=== PATIENT | female | born 1985 | race Caucasian/White ===

== ENCOUNTER 2022-05-11 21:31 | Observation (INO) ==
[2022-05-11] MEDS ORDERED: ANCEF 1 GM in SODIUM CHLORIDE 50 ML IV ONE (22:07)
[2022-05-11] MEDS ORDERED: ANCEF ONE (22:17)
[2022-05-11] MEDS ORDERED: TORADOL IVP ONE (22:34)
[2022-05-11 22:35] LABS: BASOPHILS % (AUTO) 0.2 % (0.0-3.0); EOSINOPHILS # (AUTO) 0.3 K/ul (0.0-0.7); EOSINOPHILS % (AUTO) 3.3 % (0.0-7.0); HEMATOCRIT 38.1 % (37.0-47.0); HEMOGLOBIN 12.6 g/dl (12.0-16.0); IMMATURE GRANULOCYTE % (AUTO) 0.1 % (0.0-5.0); LYMPHOCYTES # (AUTO) 3.5 K/uL (0.60-3.4); LYMPHOCYTES % (AUTO) 38.6 (10.0-50.0); MEAN CORPUSCULAR HEMOGLOBIN 28.4 pg (27.0-31.0); MEAN CORPUSCULAR HGB CONC 33.1 (31.8-35.4); MONOCYTES # (AUTO) 0.5 K/uL (0.4-2.0); MONOCYTES % (AUTO) 5.6 (0-10); NEUTROPHILS # (AUTO) 4.7 K/ul (2.0-6.9); NEUTROPHILS % (AUTO) 52.2 % (42.2-75.2); PLATELET COUNT 367 10^3/uL (140-440); RDW COEFFICIENT OF VARIATION 13.5 % (11.6-14.8); RED BLOOD COUNT 4.43 10^6/ul (4.20-5.40)
[2022-05-11] MEDS ORDERED: MORPHINE 4 MG/ML SYRINGE IVP ONE (22:35)
--- NOTE | 2022-05-11 22:46 | ED.PDOC ---
General ED Provider: Dr. SANTOSH VILLALPANDO Chief Complaint: Cellulitis Stated Complaint: Patient is a 37 year old female who states that she has been moving from [place] to [place] and noticed yesterday what appeared to be a bite on the right triceps area. She states that is is painful and has enlarged quickly in size to 31 x 21 cm with swelling and pain. Time Seen by Provider: 05/11/22 21:58 Mode of Arrival: Walk-In Information Source: Patient Nursing and Triage Documentation Reviewed and Agree: Yes Does patient meet sepsis criteria?: No System Inflammatory Response Syndrome: Not Applicable Sepsis Protocol: For patient's 13 years and over: Temp is 96.8 and below OR 101 and greater Pulse >90 BPM Resp >20/minute Acutely Altered Mental Status Are patient's symptoms suggestive of a new infection, such as: -Pneumonia -Skin, Soft Tissue -Endocarditis -UTI -Bone, Joint Infection -Implantable Device -Acute Abdominal Infection -Wound Infection -Meningitis -Blood Stream Catheter Infection -Unknown Skin Complaint Exam Skin/Soft Tissue Complaint/Exam Onset/Duration: 2 days Symptoms Are: Still present Timing: Constant Initial Severity: Moderate Current Severity: Severe Location: right arm Character: Reports Redness, Swelling and Painful Aggravating: Reports Heat and Touch Alleviating: Reports None Associated Signs and Symptoms: Reports Tenderness and Red streaks Related History: Reports Insect bite/sting (possible ); Denies Similar episode or Recent trauma Related Surgical History: Reports None Recent Exposure to Others w/Similar Symptoms: Yes Skin Findings: Present Erythema Differential Diagnoses: Cellulitis and Infection Review of Systems Review Of Systems Constitutional: Reports No symptoms Eyes: Reports No symptoms Ears, Nose, Mouth, Throat: Reports No symptoms Cardiac: Reports No symptoms GI: Reports No symptoms : Reports No symptoms Musculoskeletal: Reports Muscle pain Skin: Reports Change in color and Rash Neurological: Reports Anxiety All Other Systems: Reviewed and Negative PFSH Female Reproductive History Menstrual Hx Hysterectomy: No Hx Tubal Ligation: Yes (2003 AND REVERSAL IN 2009) Physical Exam Physical Exam Appearance: Reports Obese Ill-appearing: Mild Pain Distress: Moderate Eyes: Reports MARTINE, EOMI and Conjunctiva clear ENT: Reports Nose normal Neck: Not Examined Respiratory: Reports Airway patent and Breath sounds clear Cardiovascular: Reports RRR and No rub GI/: Reports Not Examined Musculoskeletal: Reports Edema Skin: Reports Warm and Dry Neurological: Reports Motor intact, Alert and Oriented Psychiatric: Reports Anxious Critical Care Note Critical Care Note Total Critical Care Time (mins): 0 Course Course Hematology/Chemistry: 05/11/22 22:30 05/11/22 22:30 Orders, Labs, Meds: Lab Review 05/11/22 05/11/22 05/11/22 22:30 22:30 22:30 WBC 9.00 RBC 4.43 Hgb 12.6 Hct 38.1 MCV 86.0 MCH 28.4 MCHC 33.1 RDW Coeff of Cruzito 13.5 Plt Count 367 Immature Gran % (Auto) 0.1 Neut % (Auto) 52.2 Lymph % (Auto) 38.6 Pitkin % (Auto) 5.6 Eos % (Auto) 3.3 Baso % (Auto) 0.2 Neut # (Auto) 4.7 Lymph # (Auto) 3.5 H Pitkin # (Auto) 0.5 Eos # (Auto) 0.3 Baso # (Auto) 0.0 Immature Gran # (Auto) 0.0 Sodium 140.8 Potassium 3.85 Chloride 105.0 Carbon Dioxide 23.9 Anion Gap 15.75 BUN 11.9 Creatinine 0.87 Estimated GFR (MDRD) 72.00 BUN/Creatinine Ratio 13.67 Glucose 103.5 Lactic Acid Calcium 9.15 Total Bilirubin < 0.10 L AST 25.0 ALT 21.2 Alkaline Phosphatase 49.2 Total Protein 7.53 Albumin 4.63 Globulin 2.90 Albumin/Globulin Ratio 1.59 Procalcitonin < 0.05 05/11/22 22:30 WBC RBC Hgb Hct MCV MCH MCHC RDW Coeff of Cruzito Plt Count Immature Gran % (Auto) Neut % (Auto) Lymph % (Auto) Pitkin % (Auto) Eos % (Auto) Baso % (Auto) Neut # (Auto) Lymph # (Auto) Pitkin # (Auto) Eos # (Auto) Baso # (Auto) Immature Gran # (Auto) Sodium Potassium Chloride Carbon Dioxide Anion Gap BUN Creatinine Estimated GFR (MDRD) BUN/Creatinine Ratio Glucose Lactic Acid 1.13 Calcium Total Bilirubin AST ALT Alkaline Phosphatase Total Protein Albumin Globulin Albumin/Globulin Ratio Procalcitonin Orders Category Date Time Status PLACE [facility] 05/12/22 00:05 Active BED) ACTIVITY .Up ad Krista CARE 05/12/22 00:06 Active INTAKE & OUTPUT Q8HR CARE 05/12/22 00:05 Active VITAL SIGNS Q8HR CARE 05/12/22 00:06 Active REGULAR DIET DIETARY 05/12/22 Breakfast Ordered ED APPLY O2 .ONCE EMERGENCY 05/11/22 22:07 Active ED ADOPTION SERVICES MANAGER APPLIED .ONCE EMERGENCY 05/11/22 22:07 Active ED IV/MEDIPORT/POWERPORT .ONCE EMERGENCY 05/11/22 22:07 Active BASIC METABOLIC PANEL DAILY@0600 LAB 05/12/22 06:00 Ordered BASIC METABOLIC PANEL DAILY@0600 LAB 05/13/22 06:00 Ordered BLOOD CULTURE (ED ONLY) Stat LAB 05/11/22 22:40 Received CBC W/ AUTO DIFF DAILY@0600 LAB 05/12/22 06:00 Ordered CBC W/ AUTO DIFF DAILY@0600 LAB 05/13/22 06:00 Ordered CBC W/ AUTO DIFF Stat LAB 05/11/22 22:30 Completed COMPREHENSIVE METABOLIC PANEL Stat LAB 05/11/22 22:30 Completed LACTIC ACID Stat LAB 05/11/22 22:30 Completed PROCALCITONIN Stat LAB 05/11/22 22:30 Completed SARS COV-2 RNA RAPID OLIVIA Stat LAB 05/11/22 Received 0.9 % Sodium Chloride [Saline Flush] MEDS 05/11/22 22:07 Active 1 syr IVF PRN PRN Cefazolin Sodium [Ancef] MEDS 05/11/22 22:17 Discontinued 1 gm .ROUTE .STK-MED ONE Cefazolin Sodium [Ancef] 1 gm MEDS 05/11/22 22:07 Discontinued 0.9 % Sodium Chloride [Sodium Chloride] 50 ml IV ONCE Cefazolin Sodium/Dextrose,Iso [Ancef 1 gm/50 ml D5w] MEDS 05/12/22 05:00 Ordered 1 gm in 50 ml IV Q8HR Enoxaparin Sodium [Lovenox] MEDS 05/12/22 09:00 Ordered 40 mg SUBCUT DAILY Hydrocodone Bit/Acetaminophen [Freeman 5-325] MEDS 05/12/22 00:05 Ordered 1 tab PO Q6H PRN Ketorolac Tromethamine [Toradol] MEDS 05/11/22 22:34 Discontinued 15 mg IVP ONCE ONE Morphine Sulfate [Morphine 4 mg/ml Syringe] MEDS 05/11/22 22:35 Discontinued 4 mg IVP ONCE ONE Morphine Sulfate [Morphine 4 mg/ml Syringe] MEDS 05/12/22 00:11 Ordered 4 mg IVP Q6H PRN Ondansetron HCl/Pf [Zofran 4 mg/2 ml] MEDS 05/12/22 00:05 Ordered 4 mg IVP Q6H PRN Sodium Chloride 0.9% [Sodium Chloride] 1,000 ml MEDS 05/12/22 00:30 Ordered IV 75 mls/hr RESUSCITATION STATUS Routine OTHERS 05/12/22 00:05 Ordered Medications Generic Name Dose Route Start Last Admin Trade Name Latonia PRN Reason Stop Dose Admin Hydrocodone Bitart/Acetaminophen 1 tab 05/12/22 00:05 Hydrocodone Bit/Acetaminophen 5/325 Mg Tablet PO Q6H PRN MODERATE PAIN Enoxaparin Sodium 40 mg 05/12/22 09:00 Enoxaparin Sodium 40 Mg/0.4 Ml Syr SUBCUT DAILY MADALYN Sodium Chloride 1,000 mls @ 75 mls/hr 05/12/22 00:30 Sodium Chloride IV .[id number] MADALYN Cefazolin Sodium/Dextrose 1 gm in 50 mls @ 75 mls/hr 05/12/22 05:00 Ancef 1 Gm/50 Ml D5w IV 05/15/22 04:59 Q8HR MADALYN Morphine Sulfate 4 mg 05/12/22 00:11 Morphine Sulfate 4 Mg/Ml Syringe IVP Q6H PRN severe pain Ondansetron HCl 4 mg 05/12/22 00:05 Ondansetron Hcl/Pf 4 Mg/2 Ml Sdv IVP Q6H PRN Nausea / Vomiting Sodium Chloride 1 syr 05/11/22 22:07 0.9% Sodium Chloride 10 Ml Disp.Syrin IVF PRN PRN To flush IV Discontinued Medications Generic Name Dose Route Start Last Admin Trade Name Latonia PRN Reason Stop Dose Admin Cefazolin Sodium 1 gm/ Sodium 50 mls @ 75 mls/hr 05/11/22 22:07 05/11/22 22:18 Chloride IV 05/11/22 22:46 75 mls/hr ONCE ONE Administration Ketorolac Tromethamine 15 mg 05/11/22 22:34 05/11/22 22:54 Ketorolac Tromethamine 15 Mg/Ml Vial IVP 05/11/22 22:35 15 mg ONCE ONE Administration Morphine Sulfate 4 mg 05/11/22 22:35 05/11/22 22:54 Morphine Sulfate 4 Mg/Ml Syringe IVP 05/11/22 22:36 4 mg ONCE ONE Administration Vital Signs: Temp Pulse Resp BP Pulse Ox 05/11/22 21:34 97.7 F 76 20 128/82 98 Discharge Plan Discharge Patient Disposition: PLACED OBSERVATION Discharge Problem: Cellulitis Did you review [place] HARVEST WORKER?: Not Applicable ED Provider: SANTOSH VILLALPANDO Condition: Fair Physician Progress Note: []
[2022-05-11 22:48] LABS: ALANINE AMINOTRANSFERASE 21.2 U/L (0-35); ALBUMIN 4.63 g/dL (3.5-5.0); ALKALINE PHOSPHATASE 49.2 U/L (38-126); BILIRUBIN,TOTAL < 0.10 mg/dL (0.2-1.3); BLOOD UREA NITROGEN 11.9 mg/dL (7-17); CALCIUM 9.15 mg/dL (8.4-10.2); CARBON DIOXIDE 23.9 mmol/L (22-30.0); CREATININE 0.87 mg/dL (0.60-1.30); GLUCOSE 103.5 mg/dL (74-106); POTASSIUM 3.85 mmol/L (3.5-5.1); SODIUM 140.8 mmol/L (134.5-145); TOTAL PROTEIN 7.53 g/dL (6.3-8.2)
[2022-05-12] MEDS ORDERED: ZOFRAN 4 MG/2 ML IVP PRN (00:05)
[2022-05-12] MEDS ORDERED: NORCO 5-325 PO PRN (00:05)
[2022-05-12] MEDS ORDERED: MORPHINE 4 MG/ML SYRINGE IVP PRN (00:11)
[2022-05-12 02:15] VITALS: BMI 36.1
[2022-05-12] MEDS: SODIUM CHLORIDE 1,000 ML IV SCH ×2 (03:30→16:08)
[2022-05-12 05:13] LABS: BASOPHILS % (AUTO) 0.2 % (0.0-3.0); EOSINOPHILS # (AUTO) 0.3 K/ul (0.0-0.7); EOSINOPHILS % (AUTO) 3.4 % (0.0-7.0); HEMATOCRIT 38.3 % (37.0-47.0); HEMOGLOBIN 12.2 g/dl (12.0-16.0); IMMATURE GRANULOCYTE % (AUTO) 0.1 % (0.0-5.0); LYMPHOCYTES # (AUTO) 3.4 K/uL (0.60-3.4); LYMPHOCYTES % (AUTO) 39.2 (10.0-50.0); MEAN CORPUSCULAR HEMOGLOBIN 28.2 pg (27.0-31.0); MEAN CORPUSCULAR HGB CONC 31.9 (31.8-35.4); MEAN CORPUSCULAR VOLUME 88.7 fl (81.0-99.0); MONOCYTES # (AUTO) 0.5 K/uL (0.4-2.0); MONOCYTES % (AUTO) 5.3 (0-10); NEUTROPHILS # (AUTO) 4.5 K/ul (2.0-6.9); NEUTROPHILS % (AUTO) 51.8 % (42.2-75.2); PLATELET COUNT 336 10^3/uL (140-440); RDW COEFFICIENT OF VARIATION 13.7 % (11.6-14.8); RED BLOOD COUNT 4.32 10^6/ul (4.20-5.40); WHITE BLOOD COUNT 8.63 K/ul (4.6-10.2)
[2022-05-12] MEDS: ANCEF 1 GM/50 ML D5W 1 GM/50 ML BAG IV SCH ×3 (05:15→20:23)
[2022-05-12 05:28] LABS: BLOOD UREA NITROGEN 11.8 mg/dL (7-17); CALCIUM 8.51 mg/dL (8.4-10.2); CARBON DIOXIDE 22.4 mmol/L (22-30.0); CHLORIDE 106.2 mmol/L (98-107); CREATININE 0.67 mg/dL (0.60-1.30); GLUCOSE 99.2 mg/dL (74-106); POTASSIUM 3.83 mmol/L (3.5-5.1); SODIUM 138.9 mmol/L (134.5-145)
[2022-05-12] MEDS: LOVENOX SUBCUT SCH (09:03)
[2022-05-12] MEDS: MOTRIN PO PRN (16:07)
--- NOTE | 2022-05-13 03:49 | PCM.PROG ---
Date Seen by Provider: 05/12/22 Time Seen by Provider: 12:30 Subjective: Continued right elbow and forearm pain and swelling Objective: Vitals: T=97.9 F, P=65, R=12, UM=507/59, SPO2=98 HEENT: []WNL Neck: []supple Lungs: []chest was clear CVS: []RRR Abdomen: []benign Extremities: []right dorso-medial elbow to forearm redness, swelling and mild tenderness. full ROM. Neurological: []non-focal Skin: []no acute abnormality. Lab/Tests/Diagnostic Imaging: [] (1) Cellulitis: Status: Acute Code(s): L03.90 - Cellulitis, unspecified SNOMED Code(s): 436222872 Plan: 1. Continue Tx regimen. 2. Ensure analgesia. 3. RICE.
[2022-05-13] MEDS: ANCEF 1 GM/50 ML D5W 1 GM/50 ML BAG IV SCH ×3 (05:04→21:18)
[2022-05-13] MEDS: MOTRIN PO PRN ×2 (05:22→16:00)
[2022-05-13] MEDS: PRILOSEC PO SCH (05:34)
[2022-05-13 05:37] LABS: BASOPHILS % (AUTO) 0.3 % (0.0-3.0); EOSINOPHILS # (AUTO) 0.3 K/ul (0.0-0.7); EOSINOPHILS % (AUTO) 3.7 % (0.0-7.0); HEMATOCRIT 37.4 % (37.0-47.0); HEMOGLOBIN 11.7 g/dl (12.0-16.0); IMMATURE GRANULOCYTE % (AUTO) 0.1 % (0.0-5.0); LYMPHOCYTES # (AUTO) 2.6 K/uL (0.60-3.4); MEAN CORPUSCULAR HEMOGLOBIN 27.7 pg (27.0-31.0); MEAN CORPUSCULAR HGB CONC 31.3 (31.8-35.4); MEAN CORPUSCULAR VOLUME 88.4 fl (81.0-99.0); MONOCYTES # (AUTO) 0.4 K/uL (0.4-2.0); MONOCYTES % (AUTO) 6.4 (0-10); NEUTROPHILS # (AUTO) 3.4 K/ul (2.0-6.9); NEUTROPHILS % (AUTO) 50.5 % (42.2-75.2); PLATELET COUNT 324 10^3/uL (140-440); RDW COEFFICIENT OF VARIATION 13.5 % (11.6-14.8); RED BLOOD COUNT 4.23 10^6/ul (4.20-5.40); WHITE BLOOD COUNT 6.75 K/ul (4.6-10.2)
[2022-05-13] MEDS: SODIUM CHLORIDE 1,000 ML IV SCH ×3 (05:40→20:37)
[2022-05-13 05:58] LABS: BLOOD UREA NITROGEN 11.1 mg/dL (7-17); CALCIUM 8.44 mg/dL (8.4-10.2); CARBON DIOXIDE 22.6 mmol/L (22-30.0); CREATININE 0.62 mg/dL (0.60-1.30); GLUCOSE 94.6 mg/dL (74-106); POTASSIUM 4.04 mmol/L (3.5-5.1); SODIUM 138.2 mmol/L (134.5-145)
[2022-05-13] MEDS: LOVENOX SUBCUT SCH (10:02)
--- NOTE | 2022-05-13 13:42 | PCM.PROG ---
Date Seen by Provider: 05/13/22 Time Seen by Provider: 13:39 Subjective: improving cellulitis of the right arm, less painful, diagnosis: cellulitis right arm Objective: Vitals: T=97.3 F, P=68, R=12, BP=90/59, SPO2=98 HEENT: []conjunctiva clear Neck: []supple Lungs: [] no respiratory distress CVS: [] Abdomen: [] Extremities: []decreasing erythema of the right arm, anh Neurological: []alert and orieinted Skin: [] Lab/Tests/Diagnostic Imaging: [] normal wbc (1) Cellulitis: Status: Acute Code(s): L03.90 - Cellulitis, unspecified SNOMED Code(s): 983598785 Plan: continue ancef, home on oral antibiotic in the AM is wbc normal care to Dr Squires at 19:00
[2022-05-14] MEDS: ANCEF 1 GM/50 ML D5W 1 GM/50 ML BAG IV SCH (04:08)
[2022-05-14 05:36] LABS: BASOPHILS % (AUTO) 0.4 % (0.0-3.0); EOSINOPHILS # (AUTO) 0.2 K/ul (0.0-0.7); EOSINOPHILS % (AUTO) 3.5 % (0.0-7.0); HEMATOCRIT 36.7 % (37.0-47.0); HEMOGLOBIN 11.7 g/dl (12.0-16.0); IMMATURE GRANULOCYTE % (AUTO) 0.1 % (0.0-5.0); LYMPHOCYTES # (AUTO) 2.8 K/uL (0.60-3.4); LYMPHOCYTES % (AUTO) 40.4 (10.0-50.0); MEAN CORPUSCULAR HEMOGLOBIN 28.3 pg (27.0-31.0); MEAN CORPUSCULAR HGB CONC 31.9 (31.8-35.4); MEAN CORPUSCULAR VOLUME 88.6 fl (81.0-99.0); MONOCYTES # (AUTO) 0.4 K/uL (0.4-2.0); MONOCYTES % (AUTO) 5.9 (0-10); NEUTROPHILS # (AUTO) 3.4 K/ul (2.0-6.9); NEUTROPHILS % (AUTO) 49.7 % (42.2-75.2); PLATELET COUNT 313 10^3/uL (140-440); RDW COEFFICIENT OF VARIATION 13.7 % (11.6-14.8); RED BLOOD COUNT 4.14 10^6/ul (4.20-5.40)
[2022-05-14] MEDS: PRILOSEC PO SCH (05:50)
--- NOTE | 2022-05-14 08:41 | PCM.DC ---
Final Diagnosis: Right arm cellulitis Physical Exam Appearance: Well-appearing Ill-appearing: None Pain Distress: None Eyes: MARTINE, EOMI and Conjunctiva clear ENT: Ears normal, Nose normal and Oropharynx normal Neck: Supple Respiratory: Airway patent, Breath sounds clear, Breath sounds equal and Respirations nonlabored Cardiovascular: RRR, Pulses normal, No rub and No murmur GI/: Soft, Nontender, No masses, Bowel sounds normal and No Organomegaly Musculoskeletal: Normal strength, ROM intact, No edema, No calf tenderness and Other (There is slight erythema remaining but has improved greatly) Skin: Warm, Dry and Normal color Neurological: Sensation intact, Motor intact, Reflexes intact, Cranial nerves intact, Alert and Oriented Psychiatric: Affect appropriate and Mood appropriate (1) Cellulitis: Status: Acute Code(s): L03.90 - Cellulitis, unspecified SNOMED Code(s): 737966784 Reason for Hospitalization: Pt was admitted for right arm cellulitis Prognosis/Condition at Discharge: Good Medications at Discharge: Ambulatory Orders Medication Instructions Recorded buspirone 5 mg tablet 25 mg PO BID 05/11/22 ergocalciferol (vitamin D2) 1,250 1,250 mcg PO DAILY 05/11/22 mcg (50,000 unit) capsule omeprazole 20 mg capsule,delayed 20 mg PO DAILY 05/11/22 release sertraline 25 mg tablet 25 mg PO DAILY 05/11/22 Lab/Diagnostics: Review of CBC and chemistries are unremarkable. Follow-ups: Follow up with your primary care doctor next week or return if symptoms change or worsen Discharge Disposition: Home Hospital Course: Pt was admitted for IV antibiotics for right arm cellulitis. She improved over several days and was doing much better on day of discharge Plan: 1. Cellulitis: Will D/C with 7 day prescriptions for Keflex and Bactrim
[2022-05-14 10:07] VITALS: BP 110/70; TEMP 97
[2022-05-14] MEDS: LOVENOX SUBCUT SCH (11:26)
== END 2022-05-14 12:40 | disposition home or self-care (01) ==
LOC: ED 21:31 → MEDSURG A 21:31
PROVIDERS: ADMIT Internal Medicine Geriatric Medicine; ATTEND Emergency Medicine
DX: L03.113 Cellulitis of right upper limb; L03.90 Cellulitis, unspecified; Z20.822 Contact with and (suspected) exposure to COVID-19; Z51.81 Encounter for therapeutic drug level monitoring; Z79.899 Other long term (current) drug therapy